=== PATIENT | female | born 1975 | race Caucasian/White ===

== ENCOUNTER 2018-09-15 13:39 | Inpatient (IN) | payer OTHER ==
[~2018-09-15] VITALS: Ht 157.5 cm; Wt 86.4 kg
--- NOTE | 2018-09-15 14:15 | ERD ---
ER Documentation Chief Complaint Chief Complaint pt was being transported back to [facility] en route HPI The patient is a 43-year-old female presenting to the ER because of new onset seizure. She was brought from assisted living home to [facility] for acute suicidal ideation. She was seen in the ER and cleared for psychiatric admission. She was seen by rubber [facility]older who sent her to [facility] and [facility]. However she had a seizure in route to the hospital, therefore she was diverted to the emergency department. According to the EMS, she is a lasted for approximately 30 seconds, she was foaming at the mouth. I reviewed the notes from [facility], she was talking Past Medical/surgical service/social history/review of system: Unable to obtain due to her condition Medications Home Meds Reported Medications Bupropion Hcl* (Bupropion Hcl*) Unknown Strength Tablet, TAB PO, TAB 09/15/18 Aripiprazole* (Abilify*) Unknown Strength Tablet, TAB PO, #30 TAB 09/15/18 Alprazolam* (Xanax*) Unknown Strength Tab, TAB PO, TAB 09/15/18 Allergies Allergies: Coded Allergies: No Known Allergy (Unverified , 09/15/18) Physical Exam Vitals Vital Signs Date Temp Pulse Resp B/P (MAP) Pulse Ox O2 O2 Flow FiO2 Time Delivery Rate 09/15/18 83 18 98/71 (80) 92 Room Air 18:30 09/15/18 85 17 107/71 96 Room Air 17:15 (83) 09/15/18 98.2 82 20 117/78 97 16:12 (91) 09/15/18 98.2 98 20 110/61 97 13:46 (77) Physical Exam Const: No acute distress. Head: Atraumatic. Eyes: Normal Conjunctiva. ENT: Normal External Ears, Nose and Mouth. Some oral discharge Neck: Full range of motion. No meningismus. Resp: Clear to auscultation bilaterally. Cardio: Regular rate and rhythm. Abd: Soft, non distended, normal bowel sounds, non tender. Skin: No petechiae or rashes. Back: No midline or flank tenderness. Ext: No cyanosis, or edema. Neur: Unable to perform due to her condition Psych: Unable to perform due to her condition Result Diagram: 09/15/18 1441 09/15/18 1441 Results 24 hrs Laboratory Tests Test 09/15/18 14:41 White Blood Count 7.6 10^3/ul Red Blood Count 4.67 10^6/ul Hemoglobin 14.0 g/dl Hematocrit 42.0 % Mean Corpuscular Volume 89.9 fl Mean Corpuscular Hemoglobin 30.0 pg Mean Corpuscular Hemoglobin Concent 33.3 g/dl Red Cell Distribution Width 13.2 % Platelet Count 310 10^3/UL Mean Platelet Volume 10.6 fl Immature Granulocytes % 0.300 % Neutrophils % 52.8 % Lymphocytes % 34.2 % Monocytes % 10.3 % Eosinophils % 1.5 % Basophils % 0.9 % Nucleated Red Blood Cells % 0.0 /100WBC Immature Granulocytes # 0.020 10^3/ul Neutrophils # 4.0 10^3/ul Lymphocytes # 2.6 10^3/ul Monocytes # 0.8 10^3/ul Eosinophils # 0.1 10^3/ul Basophils # 0.1 10^3/ul Nucleated Red Blood Cells # 0.0 10^3/ul Sodium Level 142 mmol/L Potassium Level 3.7 mmol/L Chloride Level 109 mmol/L Carbon Dioxide Level 27 mmol/L Anion Gap 6 Blood Urea Nitrogen 4 mg/dl Creatinine 0.62 mg/dl Est Glomerular Filtrat Rate mL/min > 60 mL/min Glucose Level 105 mg/dl Calcium Level 9.8 mg/dl Current Medications Medications Dose Sig/Viridiana Start Time Status Last (Trade) Ordered Route PRN Stop Time Admin Dose Reason Admin 100 ml @ ONCE STAT 09/15/18 DC 09/15/18 Levetiracetam 400 mls/hr IVPB 14:20 14:45 09/15/18 14:34 Lorazepam 2 mg STK-MED 09/15/18 DC (Ativan) ONCE .ROUTE 16:41 09/15/18 16:42 Lorazepam 0.5 mg ONCE ONCE 09/15/18 DC 09/15/18 (Ativan) IV 17:00 16:52 09/15/18 17:01 Procedures/[place] [id number] Radiology Main Line: [phone] DIAGNOSTIC IMAGING REPORT Patient: PILI LORA : 1975 Age: 43 Sex: F MR #: [id number] DOS: 09/15/18 1420 Ordering MD: ORLY TEMPLE MD Location: E/R Room/Bed: PROCEDURE: CT Brain without contrast. CLINICAL INDICATION: Seizure TECHNIQUE: A CT of the brain was performed on a multidetector CT scanner utilizing axial sections from the skull base through the vertex without contrast. Images were reviewed on a high-resolution PACS workstation. Exam CTDI = 39.04 mGy and the DLP = 634.23 mGy-cm. DICOM images are available. One or more of the following dose reduction techniques were used: Automated exposure control. Adjustment of the mA and/or kV according to patient size. Use of iterative reconstruction technique. COMPARISON: None available FINDINGS: There is no evidence of intracranial hemorrhage, mass effect or midline shift. No abnormal intra-axial or extra-axial fluid collections are seen. The density of the brain is normal and the [place]/white matter differentiation is well preserved. There are several calcified scalp lesions in the left frontal parietal region. The osseous structures are intact. The paranasal sinuses are clear. IMPRESSION: 1. No intracranial hemorrhage, mass effect or midline shift. RPTAT: BB .Poonam Flood MD, MD Date Time Electronically viewed and signed by .Poonam Flood MD, MD on 09/15/2018 15:20 .O/ CC: ORLY TEMPLE MD [id number] [place] [address] Radiology Main Line: [phone] DIAGNOSTIC IMAGING REPORT Patient: PILI LORA : 1975 Age: 43 Sex: F MR #: [id number] DOS: 09/15/18 1420 Ordering MD: ORLY TEMPLE MD Location: E/R Room/Bed: PROCEDURE: XR Chest. CLINICAL INDICATION: Seizure TECHNIQUE: Single frontal view of the chest was obtained COMPARISON: None FINDINGS: The heart and mediastinum are within normal limits. The lungs are clear. There is no pleural effusion or pneumothorax. RPTAT: AA IMPRESSION: No acute disease. .Vj Estrada MD, Date Time Electronically viewed and signed by .Vj Estrada MD, on 09/15/2018 15:00 .S/ CC: ORLY TEMPLE MD [id number] MEDICAL MAKING DECISION: The patient remain noncommunicating the emergency department, questionable pseudoseizure. We have tried to awake her with ammonia, however she became agitated. She was treated empirically with Keppra 1 g IV for acute new onset seizure The differential diagnoses considered include but are not limited to new onset seizure, decompensated psychiatric illness, electrolyte imbalance, viral meningitis, anxiety attack, panic attack Departure Diagnosis: Primary Impression: New onset seizure Condition: Stable Comments I discussed the findings with the patient. I discussed the patient with Dr Sanders at 4:20p , who was made aware of the lab, the treatment, the patient condition. The patient is admitted to [facility] Disclaimer: Inadvertent spelling and grammatical errors are likely due to EHR/dictation software use and do not reflect on the overall quality of patient care. Also, please note that the electronic time recorded on this note does not necessarily reflect the actual time of the patient encounter. ORLY TEMPLE MD September 15, 2018 14:15
[2018-09-15] MEDS ORDERED: LEVETIRACETAM 1000 MG (PMX) 100 ML IVPB STA (14:20)
[2018-09-15] MEDS ORDERED: ALPR0.5T PO (14:29)
[2018-09-15] MEDS ORDERED: ARIP2TAB17 PO (14:30)
[2018-09-15] MEDS ORDERED: BUPR100T14 PO (14:31)
[2018-09-15] MEDS ORDERED: LORAZEPAM 2 MG INJ ONE (16:41)
[2018-09-15] MEDS ORDERED: LORAZEPAM 2 MG INJ IV ONE (17:00)
--- NOTE | 2018-09-15 17:15 | HP ---
Date/Time of Note Date/Time of Note DATE: 09/15/18 TIME: 17:10 Assessment/Plan VTE Prophylaxis Pharmacological prophylaxis: heparin Lines/Catheters [facility] Saline Lock Assessment/Plan Hospital Course 43 yo female with depression presents with seizure vs pseudoseizure - Not clear if this was actual seizure activity vs pseudoseiurze. we will get an EEG and consult neurology - She has been given Keppra, will defer further AEDs to neurology - Monitor, supportive care Result Diagram: 09/15/18 1441 09/15/18 1441 Results 24hrs Laboratory Tests Test 09/15/18 14:41 White Blood Count 7.6 Red Blood Count 4.67 Hemoglobin 14.0 Hematocrit 42.0 Mean Corpuscular Volume 89.9 Mean Corpuscular Hemoglobin 30.0 Mean Corpuscular Hemoglobin Concent 33.3 Red Cell Distribution Width 13.2 Platelet Count 310 Mean Platelet Volume 10.6 H Immature Granulocytes % 0.300 Neutrophils % 52.8 Lymphocytes % 34.2 Monocytes % 10.3 Eosinophils % 1.5 Basophils % 0.9 Nucleated Red Blood Cells % 0.0 Immature Granulocytes # 0.020 Neutrophils # 4.0 Lymphocytes # 2.6 Monocytes # 0.8 Eosinophils # 0.1 Basophils # 0.1 Nucleated Red Blood Cells # 0.0 Sodium Level 142 Potassium Level 3.7 Chloride Level 109 Carbon Dioxide Level 27 Anion Gap 6 Blood Urea Nitrogen 4 L Creatinine 0.62 Est Glomerular Filtrat Rate mL/min > 60 Glucose Level 105 Calcium Level 9.8 HPI/ROS Admit Date/Time Admit Date/Time Hx of Present Illness 43 yo female with depression presents for evaluation of seizure Patient hosptialized for depression. She was being transported in ambulance when had a witness seizure and brought to ED Here she is nonresponsive to verbal stimuli Making odd ocular movements. Then given smelling salts and seemed to have generalized tonic clonic seizure though unclear perhaps malingering. Vitals totally normal. Non responding to verbal cues ROS Constitutional: no complaints, improved Eyes: no complaints ENT: no complaints Respiratory: no complaints Cardiovascular: no complaints Gastrointestinal: no complaints Genitourinary: no complaints Musculoskeletal: no complaints Skin: no complaints Neurologic: no complaints Endocrine: no complaints Lymphatic: no complaints Psychological: no complaints, nl mood/affect Immunologic: no complaints PMH/Family/Social Past Medical History Medical History: no pertinent history Coded Allergies: No Known Allergy (Unverified , 09/15/18) Past Surgical History Past Surgical Hx: no surgical history Family History Significant Family History: no pertinent family hx Social History Alcohol Use: none Smoking Status: Unknown if ever smoked Drug Use: none Exam/Review of Systems Vital Signs Vitals Vital Signs Date Temp Pulse Resp B/P (MAP) Pulse Ox O2 O2 Flow FiO2 Time Delivery Rate 09/15/18 98.2 82 20 117/78 97 16:12 (91) Exam Exam Nonresponsive to verbal or noxious stimuli When arm drops she doesn't allow it to hit her face RRR Breathing comfortably Noncooperative with neuro exam Reflexes 2+ throughout MARK CORTEZ MD September 15, 2018 17:15
[2018-09-15] MEDS ORDERED: DOCUSATE SODIUM 100 MG CAP PO PRN (22:00)
[2018-09-15] MEDS ORDERED: ACETAMINOPHEN 325 MG TAB PO PRN (22:00)
[2018-09-15] MEDS ORDERED: LORAZEPAM 2 MG INJ IV PRN (22:00)
[2018-09-15] MEDS ORDERED: BISACODYL (EC) 5 MG TAB PO PRN (22:00)
[2018-09-15] MEDS ORDERED: NACL 0.9% 3 ML SYG IV SCH (22:00)
[2018-09-15 23:28] VITALS: PULSE 85
[2018-09-15 23:30] VITALS: Ht 157.5 cm; Wt 86.4 kg
[2018-09-16] VITALS (11 sets, daily range): BP systolic 101–117; BP diastolic 53–76; PULSE 78–109; RESP 18–20
[2018-09-16] MEDS: NITROFURANTOIN (SR) 100 MG CAP PO SCH
[2018-09-16] MEDS ORDERED: LORAZEPAM 2 MG INJ IV ONE (06:00)
--- NOTE | 2018-09-16 06:19 | EN ---
Date/Time of Note Date/Time of Note DATE: 09/16/18 TIME: 06:14 Event Note Medicine Medicine Event Note Rapid response note rapid response called at approximately 5:50 AM Patient was noted to be nonresponsive, she was displaying possible seizure-like behavior with twitching of her eyes. Patient was nonresponsive to verbal command. She was not responsive to vigorous sternal rub. Upon attempt to open her eyelids she did appear to be possibly resisting. Her eyes were rolling back, and her eyelids were twitching. The rest of her body was not displaying any jerking movements. Patient was given 2 mg of Ativan after observing her possible seizure-like activity for a few minutes. There was no response with the initial Ativan. She was given another Ativan 2 mg IV a few minutes after which did result in cessation of the patient's seizure-like activity. No urinary incontinence. No tongue biting noted. Vital signs stable General: Patient nonresponsive to vigorous sternal rub, no response to verbal command. After receiving a total of 4 mg of IV Ativan her seizure-like activity did cease. CVS: Normal sinus rhythm at approximately 90 bpm Lungs: Clear to oscillation bilaterally Neuro: Nonresponsive, not showing seizure-like behavior. Her twitching and seizure-like behavior disease after receiving a total of 4 mg of Ativan. Assessment and plan: #1 witnessed seizure: Twitching and seizure-like activity did resolve after total of 4 mg of IV Ativan. Her oxygenation and vitals remained stable. She currently remains in postictal state. She is maintaining her airway. We will continue to monitor closely on telemetry. EEG is already been ordered. Will order stat prolactin level. Initiated on Keppra 1000 mg twice daily. Neurology has already been consulted as per the day shift. Consider MRI of the brain. Greater than 30 minutes critical care time was spent on the care management this patient. KEE GAUTHIER September 16, 2018 06:19
[2018-09-16] MEDS ORDERED: LEVETIRACETAM 1000 MG (PMX) 100 ML IVPB SCH (07:30)
--- NOTE | 2018-09-16 12:44 | PN ---
Date/Time of Note Date/Time of Note DATE: 09/16/18 TIME: 12:32 Assessment/Plan VTE Prophylaxis Risk score (from Ns)>0 risk: 3 SCD applied (from Ns): Yes Pharmacological prophylaxis: heparin Lines/Catheters IV [facility] Saline Lock Urinary Cath still in place: No Assessment/Plan Assessment/Plan 1. Alerted mental status, patient got 4 grams of ativan iv this morning and she had seizure-like activities, psychogenic. Follow up with neurology 2. Suicidal ideation, sitter 3. DVT prophylaxis: heparin Result Diagram: 09/16/1834 09/16/1834 Results 24hrs Laboratory Tests Test 09/15/18 14:41 09/16/18 05:34 09/16/18 05:44 09/16/18 06:10 White Blood Count 7.6 7.5 Red Blood Count 4.67 4.50 Hemoglobin 14.0 13.5 Hematocrit 42.0 40.8 Mean Corpuscular 89.9 90.7 Volume Mean Corpuscular 30.0 30.0 Hemoglobin Mean Corpuscular 33.3 33.1 Hemoglobin Concen t Red Cell 13.2 13.2 Distribution Width Platelet Count 310 276 Mean Platelet 10.6 H 10.8 H Volume Immature 0.300 0.300 Granulocytes % Neutrophils % 52.8 61.8 Lymphocytes % 34.2 28.1 Monocytes % 10.3 7.2 Eosinophils % 1.5 1.9 Basophils % 0.9 0.7 Nucleated Red 0.0 0.0 Blood Cells % Immature 0.020 0.020 Granulocytes # Neutrophils # 4.0 4.6 Lymphocytes # 2.6 2.1 Monocytes # 0.8 0.5 Eosinophils # 0.1 0.1 Basophils # 0.1 0.1 Nucleated Red 0.0 0.0 Blood Cells # Sodium Level 142 142 Potassium Level 3.7 3.6 Chloride Level 109 109 Carbon Dioxide 27 26 Level Anion Gap 6 7 Blood Urea 4 L 7 Nitrogen Creatinine 0.62 0.62 Est Glomerular > 60 > 60 Filtrat Rate mL/min Glucose Level 105 91 Calcium Level 9.8 9.8 Hemoglobin A1c 4.9 Magnesium Level 2.3 Total Bilirubin 0.3 Direct Bilirubin 0.00 Indirect 0.3 Bilirubin Aspartate Amino 18 Transf (AST/SGOT) Alanine 17 Aminotransferase (ALT/SGPT) Alkaline 89 Phosphatase Total Protein 6.6 Albumin 3.8 Globulin 2.80 Albumin/Globulin 1.35 Ratio Triglycerides 194 H Level Cholesterol Level 192 LDL Cholesterol, 120 Calculated HDL Cholesterol 33 L Cholesterol/HDL 5.8 Ratio Thyroid 1.250 Stimulating Hormone (TSH) Bedside Glucose 88 Urine Color NAZ Urine Clarity SLIGHTLY CLOUDY A Urine pH 5.0 Urine Specific 1.024 [place] Urine Ketones 1+ H Urine Nitrite NEGATIVE Urine Bilirubin NEGATIVE Urine 1+ H Urobilinogen Urine Leukocyte 2+ H Esterase Urine Microscopic 1 RBC Urine Microscopic 37 H WBC Urine Squamous FEW Epithelial Cells Urine Bacteria MANY A Urine Mucus MANY A Urine Hemoglobin NEGATIVE Urine Glucose NEGATIVE Urine Total NEGATIVE Protein Subjective 24 Hr Interval Summary Free Text/Dictation patient closes her eyes, no respiratory distress. She moves her eyes but does no open her eyes when asked to. Not follow commends. normal skin color Exam/Review of Systems Exam Vitals Vital Signs Date Temp Pulse Resp B/P (MAP) Pulse Ox O2 O2 Flow FiO2 Time Delivery Rate 09/16/18 97.3 95 20 113/64 95 Room Air 11:31 (80) Constitutional: well developed, non-verbal Head: normocephalic, atraumatic Eyes: nl conjunctiva, EOMI, nl lids, PERRL ENMT: nl external ears & nose, nl lips & teeth, nl nasal mucosa & septum Neck: supple, non-tender Respiratory: clear to auscultation, normal air movement; No congested cough, No crackles/rales, No diminished breath sounds, No intercostal retraction, No labored breathing, No respirations, No tactile fremitus, No wheezing, No other Cardiovascular: regular rate and rhythm, nl pulses Gastrointestinal: soft, nl liver, spleen Musculoskeletal: nl extremities to inspection Extremities: normal pulses; No calf tenderness, No cyanosis, No clubbing, No edema, No pitting pedal edema, No palpable cord, No tenderness, No other Neurological: unresponsive Results Results 24hrs Laboratory Tests Test 09/15/18 14:41 09/16/18 05:34 09/16/18 05:44 09/16/18 06:10 White Blood Count 7.6 7.5 Red Blood Count 4.67 4.50 Hemoglobin 14.0 13.5 Hematocrit 42.0 40.8 Mean Corpuscular 89.9 90.7 Volume Mean Corpuscular 30.0 30.0 Hemoglobin Mean Corpuscular 33.3 33.1 Hemoglobin Concen t Red Cell 13.2 13.2 Distribution Width Platelet Count 310 276 Mean Platelet 10.6 H 10.8 H Volume Immature 0.300 0.300 Granulocytes % Neutrophils % 52.8 61.8 Lymphocytes % 34.2 28.1 Monocytes % 10.3 7.2 Eosinophils % 1.5 1.9 Basophils % 0.9 0.7 Nucleated Red 0.0 0.0 Blood Cells % Immature 0.020 0.020 Granulocytes # Neutrophils # 4.0 4.6 Lymphocytes # 2.6 2.1 Monocytes # 0.8 0.5 Eosinophils # 0.1 0.1 Basophils # 0.1 0.1 Nucleated Red 0.0 0.0 Blood Cells # Sodium Level 142 142 Potassium Level 3.7 3.6 Chloride Level 109 109 Carbon Dioxide 27 26 Level Anion Gap 6 7 Blood Urea 4 L 7 Nitrogen Creatinine 0.62 0.62 Est Glomerular > 60 > 60 Filtrat Rate mL/min Glucose Level 105 91 Calcium Level 9.8 9.8 Hemoglobin A1c 4.9 Magnesium Level 2.3 Total Bilirubin 0.3 Direct Bilirubin 0.00 Indirect 0.3 Bilirubin Aspartate Amino 18 Transf (AST/SGOT) Alanine 17 Aminotransferase (ALT/SGPT) Alkaline 89 Phosphatase Total Protein 6.6 Albumin 3.8 Globulin 2.80 Albumin/Globulin 1.35 Ratio Triglycerides 194 H Level Cholesterol Level 192 LDL Cholesterol, 120 Calculated HDL Cholesterol 33 L Cholesterol/HDL 5.8 Ratio Thyroid 1.250 Stimulating Hormone (TSH) Bedside Glucose 88 Urine Color NAZ Urine Clarity SLIGHTLY CLOUDY A Urine pH 5.0 Urine Specific 1.024 [place] Urine Ketones 1+ H Urine Nitrite NEGATIVE Urine Bilirubin NEGATIVE Urine 1+ H Urobilinogen Urine Leukocyte 2+ H Esterase Urine Microscopic 1 RBC Urine Microscopic 37 H WBC Urine Squamous FEW Epithelial Cells Urine Bacteria MANY A Urine Mucus MANY A Urine Hemoglobin NEGATIVE Urine Glucose NEGATIVE Urine Total NEGATIVE Protein Medications Medication Current Medications IV Flush (NS 3 ml) 3 ml PER PROTOCOL IV ; Start 09/15/18 at 22:00 Lorazepam (Ativan) 1 mg Q2H PRN IV SEIZURES Last administered on 09/16/18at 05:53; Admin Dose 1 MG; Start 09/15/18 at 22:00 Ondansetron HCl (Zofran Inj) 4 mg Q6H PRN IV NAUSEA/VOMITING; Start 09/15/18 at 22:00 Acetaminophen (Tylenol Tab) 650 mg Q6H PRN PO .PAIN 1-3 OR TEMP; Start 09/15/18 at 22:00 Docusate Sodium (Colace) 100 mg Q12H PRN PO .CONSTIPATION; Start 09/15/18 at 22:00 Bisacodyl (Dulcolax) 5 mg DAILY PRN PO .CONSTIPATION; Start 09/15/18 at 22:00 Levetiracetam 100 ml @ 400 mls/hr Q12 IVPB Last administered on 09/16/18at 08:51; Admin Dose 400 MLS/HR; Start 09/16/18 at 07:30 SOPHIA MALDONADO MD September 16, 2018 12:42
--- NOTE | 2018-09-16 13:36 | CONS ---
Assessment/Plan Assessment/Plan Hospital Course 43 yo F with presumed psychiatric history who presents for evaluation following a spell concerning for seizure.. Her neurologic history is presently uncertain. On 09/16, she was additionally noted to have a recurrent spell concerning for seizure, for which a rapid response was called...which raises concern for epilepsy. Nonconvulsive seizures are additionally considered. Her neurologic examination is presently concerning for catatonia. CTH is unrevealing. P: MRI brain without contrast for further characterization EEG to evaluate for epileptiform activity Hold Keppra for now Load with depakote 1g and start maintenance 500mg BID; titrate PRN to goal level 50-100. Ativan IV PRN prolonged seizure or for cluster Cont other medical management per primary Consider psych eval Will follow clinically Consultation Date/Type/Reason Admit Date/Time Type of Consult Neurology Reason for Consultation eval for seizures Requesting Provider: MARK CORTEZ MD Date/Time of Note DATE: 09/16/18 TIME: 13:36 Hx of Present Illness The pt is currently unable to contribute a hx. It is additionally elsewhere noted: HPI The patient is a 43-year-old female presenting to the ER because of new onset seizure. She was brought from assisted living home to [facility] for acute suicidal ideation. She was seen in the ER and cleared for psychiatric admission. She was seen by production support consultant who sent her to [facility] and [place]. However she had a seizure in route to the hospital, therefore she was diverted to the emergency department. According to the EMS, she is a lasted for approximately 30 seconds, she was foaming at the mouth. I reviewed the notes from [facility], she was talking Following arrival to the ED, the pt was reportedly unresponsive to any stimuli. She was noted to have made "odd ocular movements, given smelling salts which seemed to have triggered a generalized tonic clonic seizure... concerning for seizure vs malingering. Her vitals reportedly were stable at the time; she remained nonresponsive afterwards. Subjective hx not possible: pt non-verbal Exam/Review of Systems Exam Vitals Vital Signs Date Temp Pulse Resp B/P (MAP) Pulse Ox O2 O2 Flow FiO2 Time Delivery Rate 09/16/18 104 13:02 09/16/18 97.3 20 113/64 95 Room Air 11:31 (80) Exam PE: Gen Appearance: No Apparent Distress HEENT: Normocephalic Cardiovascular: Regular rate Abdomen: Soft Extremities: Dry NE: The patient was obtunded and nonverbal. Cranial nerve examination was limited by mental status. Eyes were difficult to open. Pupils were equal and reactive to light. There was no afferent pupillary defect. Funduscopic examination was limited. Face was grossly symmetric, w/ present corneal and cough reflexes. Tone was normal. Muscle bulk was normal. I did not see fasciculations. The patient did not withdraw to noxious stimulation. Coordination and gait testing was limited by mental status. Arm and leg reflexes were within normal limits and symmetric. Nugent's sign was absent. Plantar responses were flexor. Results Result Diagram: 09/16/18 0534 09/16/1834 Results 24hrs Laboratory Tests Test 09/15/18 14:41 09/16/18 05:34 09/16/18 05:44 09/16/18 06:10 White Blood Count 7.6 7.5 Red Blood Count 4.67 4.50 Hemoglobin 14.0 13.5 Hematocrit 42.0 40.8 Mean Corpuscular 89.9 90.7 Volume Mean Corpuscular 30.0 30.0 Hemoglobin Mean Corpuscular 33.3 33.1 Hemoglobin Concen t Red Cell 13.2 13.2 Distribution Width Platelet Count 310 276 Mean Platelet 10.6 H 10.8 H Volume Immature 0.300 0.300 Granulocytes % Neutrophils % 52.8 61.8 Lymphocytes % 34.2 28.1 Monocytes % 10.3 7.2 Eosinophils % 1.5 1.9 Basophils % 0.9 0.7 Nucleated Red 0.0 0.0 Blood Cells % Immature 0.020 0.020 Granulocytes # Neutrophils # 4.0 4.6 Lymphocytes # 2.6 2.1 Monocytes # 0.8 0.5 Eosinophils # 0.1 0.1 Basophils # 0.1 0.1 Nucleated Red 0.0 0.0 Blood Cells # Sodium Level 142 142 Potassium Level 3.7 3.6 Chloride Level 109 109 Carbon Dioxide 27 26 Level Anion Gap 6 7 Blood Urea 4 L 7 Nitrogen Creatinine 0.62 0.62 Est Glomerular > 60 > 60 Filtrat Rate mL/min Glucose Level 105 91 Calcium Level 9.8 9.8 Hemoglobin A1c 4.9 Magnesium Level 2.3 Total Bilirubin 0.3 Direct Bilirubin 0.00 Indirect 0.3 Bilirubin Aspartate Amino 18 Transf (AST/SGOT) Alanine 17 Aminotransferase (ALT/SGPT) Alkaline 89 Phosphatase Total Protein 6.6 Albumin 3.8 Globulin 2.80 Albumin/Globulin 1.35 Ratio Triglycerides 194 H Level Cholesterol Level 192 LDL Cholesterol, 120 Calculated HDL Cholesterol 33 L Cholesterol/HDL 5.8 Ratio Thyroid 1.250 Stimulating Hormone (TSH) Bedside Glucose 88 Urine Color NAZ Urine Clarity SLIGHTLY CLOUDY A Urine pH 5.0 Urine Specific 1.024 [place] Urine Ketones 1+ H Urine Nitrite NEGATIVE Urine Bilirubin NEGATIVE Urine 1+ H Urobilinogen Urine Leukocyte 2+ H Esterase Urine Microscopic 1 RBC Urine Microscopic 37 H WBC Urine Squamous FEW Epithelial Cells Urine Bacteria MANY A Urine Mucus MANY A Urine Hemoglobin NEGATIVE Urine Glucose NEGATIVE Urine Total NEGATIVE Protein Medications Medication Current Medications IV Flush (NS 3 ml) 3 ml PER PROTOCOL IV ; Start 09/15/18 at 22:00 Lorazepam (Ativan) 1 mg Q2H PRN IV SEIZURES Last administered on 09/16/18at 05:53; Admin Dose 1 MG; Start 09/15/18 at 22:00 Ondansetron HCl (Zofran Inj) 4 mg Q6H PRN IV NAUSEA/VOMITING; Start 09/15/18 at 22:00 Acetaminophen (Tylenol Tab) 650 mg Q6H PRN PO .PAIN 1-3 OR TEMP; Start 09/15/18 at 22:00 Docusate Sodium (Colace) 100 mg Q12H PRN PO .CONSTIPATION; Start 09/15/18 at 22:00 Bisacodyl (Dulcolax) 5 mg DAILY PRN PO .CONSTIPATION; Start 09/15/18 at 22:00 Levetiracetam 100 ml @ 400 mls/hr Q12 IVPB Last administered on 09/16/18at 08:51; Admin Dose 400 MLS/HR; Start 09/16/18 at 07:30 Heparin Sodium (Porcine) (Heparin (5000 Units/1ml)) 5,000 unit BID SC ; Start 09/16/18 at 21:00 Past Medical History reviewed Medical History: no pertinent history Home Meds Reported Medications Bupropion Hcl* (Bupropion Hcl*) Unknown Strength Tablet, TAB PO, TAB 09/15/18 Aripiprazole* (Abilify*) Unknown Strength Tablet, TAB PO, #30 TAB 09/15/18 Alprazolam* (Xanax*) Unknown Strength Tab, TAB PO, TAB 09/15/18 Medications Current Medications IV Flush (NS 3 ml) 3 ml PER PROTOCOL IV ; Start 09/15/18 at 22:00 Lorazepam (Ativan) 1 mg Q2H PRN IV SEIZURES Last administered on 09/16/18at 0 5:53; Admin Dose 1 MG; Start 09/15/18 at 22:00 Ondansetron HCl (Zofran Inj) 4 mg Q6H PRN IV NAUSEA/VOMITING; Start 09/15/18 at 22:00 Acetaminophen (Tylenol Tab) 650 mg Q6H PRN PO .PAIN 1-3 OR TEMP; Start 09/15/18 at 22:00 Docusate Sodium (Colace) 100 mg Q12H PRN PO .CONSTIPATION; Start 09/15/18 at 22:00 Bisacodyl (Dulcolax) 5 mg DAILY PRN PO .CONSTIPATION; Start 09/15/18 at 22:00 Levetiracetam 100 ml @ 400 mls/hr Q12 IVPB Last administered on 09/16/18at 08:51; Admin Dose 400 MLS/HR; Start 09/16/18 at 07:30 Heparin Sodium (Porcine) (Heparin (5000 Units/1ml)) 5,000 unit BID SC ; Start 09/16/18 at 21:00 Allergies: Coded Allergies: No Known Allergy (Unverified , 09/15/18) Past Surgical History reviewed Past Surgical Hx: no surgical history Social History reviewed Alcohol Use: none Smoking Status: Unknown if ever smoked Drug Use: none KEVIN ROBERTS NP September 16, 2018 13:36 VINCE KEYS September 17, 2018 07:12
[2018-09-16] MEDS: BENZTROPINE 1 MG TAB PO SCH (17:00)
[2018-09-16] MEDS: HALOPERIDOL 5 MG TAB PO SCH (17:00)
--- NOTE | 2018-09-16 17:12 | PSY ---
Date/Time of Note Date/Time of Note DATE: 09/16/18 TIME: 17:03 Psychiatric Subjective Eval Consent Pt consented to telemedicine: No Subjective Evaluation Patient location: inpatient Chief Complaint: pt was being transported back to [facility] en route History of present illness Patient is a 43-year-old female with medical history of seizure. [id number] evaluation, patient is selectively mute, responding to questions in a monosyllables, she however states that she has suicidal thoughts with no specific plan patient has poor impulse control very unpredictable old scars noted on patient's wrists bilateral from previous self-mutilation. She denies auditory hallucination, but continues to reports suicidal thoughts unable to contract for safety. Discussed risk and benefits of medications of Haldol and Cogentin, which patient states is her routine meds and she verbalized understanding. Past psychiatric history Long history of mental illness Hospitalization: other Medical history Problems Medical Problems: (1) New onset seizure Status: Acute Allergies: Coded Allergies: No Known Allergy (Unverified , 09/15/18) Substance Abuse Substance abuse history: No Prior substance abuse treatmen: No Social History Marital status: single DPA/Conservatorship: No Psychiatric Objective Eval Review of Systems: Review of Systems: Not Applicable Physical Examination: Physical Examination: Applicable Appetite: Adequate Energy: Adequate Interest: Adequate Mental Status Examination: Appearance: Groomed, Disheveled Eye Contact: Poor Psychomotor Activity: Slow Behavior: Suspicious Speech: Clear, Soft AFFECT: Appropriate Mood: Depressed Though Process: Linear Orientation: x4 Cognition: Alert Insight: Impared Judgement: Moderate Attention Span: Distractible Laboratory Results Laboratory Tests Test 09/15/18 14:41 09/16/18 05:34 09/16/18 05:44 09/16/18 06:10 White Blood 7.6 10^3/ul 7.5 10^3/ul Count Red Blood Count 4.67 10^6/ul 4.50 10^6/ul Hemoglobin 14.0 g/dl 13.5 g/dl Hematocrit 42.0 % 40.8 % Mean Corpuscular 89.9 fl 90.7 fl Volume Mean Corpuscular 30.0 pg 30.0 pg Hemoglobin Mean Corpuscular 33.3 g/dl 33.1 g/dl Hemoglobin Nina nt Red Cell 13.2 % 13.2 % Distribution Width Platelet Count 310 10^3/UL 276 10^3/UL Mean Platelet 10.6 fl 10.8 fl Volume Immature 0.300 % 0.300 % Granulocytes % Neutrophils % 52.8 % 61.8 % Lymphocytes % 34.2 % 28.1 % Monocytes % 10.3 % 7.2 % Eosinophils % 1.5 % 1.9 % Basophils % 0.9 % 0.7 % Nucleated Red 0.0 /100WBC 0.0 /100WBC Blood Cells % Immature 0.020 10^3/ul 0.020 10^3/ul Granulocytes # Neutrophils # 4.0 10^3/ul 4.6 10^3/ul Lymphocytes # 2.6 10^3/ul 2.1 10^3/ul Monocytes # 0.8 10^3/ul 0.5 10^3/ul Eosinophils # 0.1 10^3/ul 0.1 10^3/ul Basophils # 0.1 10^3/ul 0.1 10^3/ul Nucleated Red 0.0 10^3/ul 0.0 10^3/ul Blood Cells # Sodium Level 142 mmol/L 142 mmol/L Potassium Level 3.7 mmol/L 3.6 mmol/L Chloride Level 109 mmol/L 109 mmol/L Carbon Dioxide 27 mmol/L 26 mmol/L Level Anion Gap 6 7 Blood Urea 4 mg/dl 7 mg/dl Nitrogen Creatinine 0.62 mg/dl 0.62 mg/dl Est Glomerular > 60 mL/min > 60 mL/min Filtrat Rate mL/min Glucose Level 105 mg/dl 91 mg/dl Calcium Level 9.8 mg/dl 9.8 mg/dl Hemoglobin A1c 4.9 % Magnesium Level 2.3 mg/dl Total Bilirubin 0.3 mg/dl Direct Bilirubin 0.00 mg/dl Indirect 0.3 mg/dl Bilirubin Aspartate Amino 18 IU/L Transf (AST/SGOT ) Alanine 17 IU/L Aminotransferase (ALT/SGPT) Alkaline 89 IU/L Phosphatase Total Protein 6.6 g/dl Albumin 3.8 g/dl Globulin 2.80 g/dl Albumin/Globulin 1.35 Ratio Triglycerides 194 mg/dl Level Cholesterol 192 mg/dl Level LDL Cholesterol, 120 mg/dl Calculated HDL Cholesterol 33 mg/dl Cholesterol/HDL 5.8 RATIO Ratio Thyroid 1.250 MIU/L Stimulating Hormone (TSH) Bedside Glucose 88 mg/dL Urine Color NAZ Urine Clarity SLIGHTLY CLOUDY Urine pH 5.0 Urine Specific 1.024 [place] Urine Ketones 1+ mg/dL Urine Nitrite NEGATIVE mg/dL Urine Bilirubin NEGATIVE mg/dL Urine 1+ mg/dL Urobilinogen Urine Leukocyte 2+ Claudio/ul Esterase Urine 1 /HPF Microscopic RBC Urine 37 /HPF Microscopic WBC Urine Squamous FEW /HPF Epithelial Cells Urine Bacteria MANY /HPF Urine Mucus MANY /HPF Urine Hemoglobin NEGATIVE mg/dL Urine Glucose NEGATIVE mg/dL Urine Total NEGATIVE mg/dl Protein Assessment and Plan Assessment/Diagnosis Diagnosis Schizoaffective disorder severe Recommendation/Plan Medication Management Haldol 5 mg daily, Cogentin 1 mg daily Multiple antipsychotics: No Discharge Disposition: Other Legal Status: Voluntary (Evaluation for 5150 hold continue one-to-one supervision, ) ALLISON LARIOS NP September 16, 2018 17:12
[2018-09-16] MEDS ORDERED: VALPROATE INJ 1,000 MG in SOD CHLORIDE 0.9% 100 ML IVPB ONE (17:30)
[2018-09-16] MEDS: HEPARIN 5,000 UNIT/1 ML VIAL SC SCH ×2 (20:59→22:40)
[2018-09-16] MEDS: VALPROATE INJ 500 MG in SOD CHLORIDE 0.9% 50 ML IVPB SCH (22:38)
[2018-09-17] VITALS (11 sets, daily range): BP systolic 110–120; BP diastolic 61–70; PULSE 80–96; RESP 18–19
[2018-09-17] MEDS: VALPROATE INJ 500 MG in SOD CHLORIDE 0.9% 50 ML IVPB SCH ×2 (08:24→21:58)
[2018-09-17] MEDS: HEPARIN 5,000 UNIT/1 ML VIAL SC SCH ×2 (08:30→22:00)
[2018-09-17] MEDS: BENZTROPINE 1 MG TAB PO SCH (08:30)
[2018-09-17] MEDS: HALOPERIDOL 5 MG TAB PO SCH (08:30)
[2018-09-17] MEDS: NITROFURANTOIN (SR) 100 MG CAP PO SCH ×2 (08:31→21:58)
--- NOTE | 2018-09-17 11:57 | PN ---
Date/Time of Note Date/Time of Note DATE: 09/17/18 TIME: 11:54 Subjective Chart was reviewed. She opens her eyes but refuses to talk to me. Objective Vitals Vital Signs Date Temp Pulse Resp B/P (MAP) Pulse Ox O2 O2 Flow FiO2 Time Delivery Rate 09/17/18 83 08:00 09/17/18 98.2 19 120/70 95 07:54 (87) 09/16/18 Room Air 20:00 Intake and Output 09/16/18 09/16/18 09/17/18 1515:00 23:00 07:00 IntakeIntake Total 900 ml 50 ml OutputOutput Total 250 ml 250 ml BalanceBalance 650 ml -200 ml Easily arousable. Noncooperative and does not follow commands Clear to auscultation bilaterally Regular rate and rhythm Soft nontender nondistended normoactive bowel sounds No edema Results Result Diagram: 09/17/18 0538 09/17/18 0538 Medications Medications Current Medications IV Flush (NS 3 ml) 3 ml PER PROTOCOL IV ; Start 09/15/18 at 22:00 Ondansetron HCl (Zofran Inj) 4 mg Q6H PRN IV NAUSEA/VOMITING; Start 09/15/18 at 22:00 Acetaminophen (Tylenol Tab) 650 mg Q6H PRN PO .PAIN 1-3 OR TEMP; Start 09/15/18 at 22:00 Docusate Sodium (Colace) 100 mg Q12H PRN PO .CONSTIPATION; Start 09/15/18 at 22:00 Bisacodyl (Dulcolax) 5 mg DAILY PRN PO .CONSTIPATION; Start 09/15/18 at 22:00 Heparin Sodium (Porcine) (Heparin (5000 Units/1ml)) 5,000 unit BID SC Last administered on 09/17/18at 08:30; Admin Dose 5,000 UNIT; Start 09/16/18 at 21:00 Valproate Sodium 500 mg/Sodium Chloride 55 ml @ 55 mls/hr BID IVPB Last administered on 09/17/18at 08:24; Admin Dose 55 MLS/HR; Start 09/16/18 at 23:00 Haloperidol (Haldol) 5 mg DAILY PO ; Start 09/16/18 at 17:00 Benztropine Mesylate (Cogentin) 1 mg DAILY PO ; Start 09/16/18 at 17:00 Nitrofurantoin Macrocrystals (Macrobid) 100 mg BID PO Last administered on 09/16/18at 00:00; Admin Dose 100 MG; Start 09/16/18 at 22:00; Stop 09/21/18 at 21:59 VTE Prophylaxis Risk score (from Ns)>0 risk: 3 SCD applied (from [facility]): Yes Lines/Catheters IV Catheter Type: Saline Lock Central line still needed: No Richardson in Place: No Assessment/Plan Assessment/Plan 43-year-old female with possible seizure versus pseudoseizure Chronic depression with bizarre behavior Continue current therapy MRI of brain The EEG was not done Neurology and psych follow-up Discharge planning to psych facility PHAM FOSTER MD September 17, 2018 11:57
--- NOTE | 2018-09-17 13:38 | PN ---
Date/Time of Note Date/Time of Note DATE: 09/17/18 TIME: 13:31 Assessment/Plan VTE Prophylaxis Risk score (from Ns)>0 risk: 3 SCD applied (from Ns): Yes Pharmacological prophylaxis: heparin Lines/Catheters IV Catheter Type (from Nrs): Saline Lock Urinary Cath still in place: No Assessment/Plan Assessment/Plan 1. Seizure versus pseudoseizure, on valproate, awaiting for MRI, Follow up with neurology 2. Psychiatric disorder, suicidal ideation, sitter 3. UTI, on macrobid 4. DVT prophylaxis: heparin Result Diagram: 09/17/1853709/17/18537 Results 24hrs Laboratory Tests Test 09/16/18 17:28 09/17/18 05:38 Lactic Acid Level 0.7 Creatine Kinase 47 Valproic Acid (Depakene) Level < 10 L 43 L White Blood Count 5.1 # Red Blood Count 4.25 Hemoglobin 12.6 Hematocrit 38.5 Mean Corpuscular Volume 90.6 Mean Corpuscular Hemoglobin 29.6 Mean Corpuscular Hemoglobin Concent 32.7 Red Cell Distribution Width 13.3 Platelet Count 243 Mean Platelet Volume 10.7 H Immature Granulocytes % 0.200 Neutrophils % 41.8 Lymphocytes % 47.2 Monocytes % 8.0 Eosinophils % 2.0 Basophils % 0.8 Nucleated Red Blood Cells % 0.0 Immature Granulocytes # 0.010 Neutrophils # 2.1 Lymphocytes # 2.4 Monocytes # 0.4 Eosinophils # 0.1 Basophils # 0.0 Nucleated Red Blood Cells # 0.0 Sodium Level 142 Potassium Level 3.9 Chloride Level 110 Carbon Dioxide Level 27 Anion Gap 5 Blood Urea Nitrogen 10 Creatinine 0.70 Est Glomerular Filtrat Rate mL/min > 60 Glucose Level 86 Calcium Level 9.0 Subjective 24 Hr Interval Summary Free Text/Dictation patient is alert and oriented today no distress Exam/Review of Systems Exam Vitals Vital Signs Date Temp Pulse Resp B/P (MAP) Pulse Ox O2 O2 Flow FiO2 Time Delivery Rate 09/17/18 98.1 96 19 120/65 96 12:28 (83) 09/16/18 Room Air 20:00 Intake and Output 09/16/18 09/16/18 09/17/18 1515:00 23:00 07:00 IntakeIntake Total 900 ml 50 ml OutputOutput Total 250 ml 250 ml BalanceBalance 650 ml -200 ml Constitutional: alert, oriented, well developed, obese Head: normocephalic, atraumatic Eyes: nl conjunctiva, EOMI, nl lids ENMT: nl external ears & nose, nl lips & teeth, nl nasal mucosa & septum Neck: supple, non-tender Respiratory: clear to auscultation, normal air movement; No congested cough, No crackles/rales, No diminished breath sounds, No int ercostal retraction, No labored breathing, No respirations, No tactile fremitus, No wheezing, No other Cardiovascular: regular rate and rhythm, nl pulses; No bruits, No diastolic murmur, No edema, No gallop, No irregular rhythm, No jugular venous distention (JVD), No murmurs/extra sounds, No rub, No systolic murmur, No S3, No S4, No other Gastrointestinal: soft, nl liver, spleen, non-tender Musculoskeletal: nl extremities to inspection Extremities: normal pulses; No calf tenderness, No cyanosis, No clubbing, No edema, No pitting pedal edema, No palpable cord, No tenderness, No other Neurological: [employer] II-XII intact, nl mental status, nl speech, nl strength Results Results 24hrs Laboratory Tests Test 09/16/18 17:28 09/17/18 05:38 Lactic Acid Level 0.7 Creatine Kinase 47 Valproic Acid (Depakene) Level < 10 L 43 L White Blood Count 5.1 # Red Blood Count 4.25 Hemoglobin 12.6 Hematocrit 38.5 Mean Corpuscular Volume 90.6 Mean Corpuscular Hemoglobin 29.6 Mean Corpuscular Hemoglobin Concent 32.7 Red Cell Distribution Width 13.3 Platelet Count 243 Mean Platelet Volume 10.7 H Immature Granulocytes % 0.200 Neutrophils % 41.8 Lymphocytes % 47.2 Monocytes % 8.0 Eosinophils % 2.0 Basophils % 0.8 Nucleated Red Blood Cells % 0.0 Immature Granulocytes # 0.010 Neutrophils # 2.1 Lymphocytes # 2.4 Monocytes # 0.4 Eosinophils # 0.1 Basophils # 0.0 Nucleated Red Blood Cells # 0.0 Sodium Level 142 Potassium Level 3.9 Chloride Level 110 Carbon Dioxide Level 27 Anion Gap 5 Blood Urea Nitrogen 10 Creatinine 0.70 Est Glomerular Filtrat Rate mL/min > 60 Glucose Level 86 Calcium Level 9.0 Medications Medication Current Medications IV Flush (NS 3 ml) 3 ml PER PROTOCOL IV ; Start 09/15/18 at 22:00 Ondansetron HCl (Zofran Inj) 4 mg Q6H PRN IV NAUSEA/VOMITING; Start 09/15/18 at 22:00 Acetaminophen (Tylenol Tab) 650 mg Q6H PRN PO .PAIN 1-3 OR TEMP; Start 09/15/18 at 22:00 Docusate Sodium (Colace) 100 mg Q12H PRN PO .CONSTIPATION; Start 09/15/18 at 22:00 Bisacodyl (Dulcolax) 5 mg DAILY PRN PO .CONSTIPATION; Start 09/15/18 at 22:00 Heparin Sodium (Porcine) (Heparin (5000 Units/1ml)) 5,000 unit BID SC Last administered on 09/17/18at 08:30; Admin Dose 5,000 UNIT; Start 09/16/18 at 21:00 Valproate Sodium 500 mg/Sodium Chloride 55 ml @ 55 mls/hr BID IVPB Last administered on 09/17/18at 08:24; Admin Dose 55 MLS/HR; Start 09/16/18 at 23:00 Haloperidol (Haldol) 5 mg DAILY PO ; Start 09/16/18 at 17:00 Benztropine Mesylate (Cogentin) 1 mg DAILY PO ; Start 09/16/18 at 17:00 Nitrofurantoin Macrocrystals (Macrobid) 100 mg BID PO Last administered on 09/16/18at 00:00; Admin Dose 100 MG; Start 09/16/18 at 22:00; Stop 09/21/18 at 21:59 SOPHIA MALDONADO MD September 17, 2018 13:38
--- NOTE | 2018-09-17 15:23 | CONS ---
Assessment/Plan Assessment/Plan Hospital Course 43 yo F with presumed psychiatric history and reported hx of seizures who presents for evaluation of a witnessed seizure episode. On 09/16, she was additionally noted to have movements concerning for seizure, for which a rapid response was called. On 09/17, I personally witnessed a spell that appeared to be nonphysiologic. Of note, the pt reportedly refused her EEG on 09/16.. CTH is unrevealing. P: Await MRI brain without contrast for further characterization Hold Keppra; Cont depakote 500mg BID; titrate PRN to goal level 50-100. Ativan IV PRN prolonged seizure Cont other medical management per primary Consider psych eval Will follow clinically Consultation Date/Type/Reason Admit Date/Time September 16, 2018 at 18:43 Type of Consult Neurology Reason for Consultation eval for seizures Requesting Provider: MARK CORTEZ MD Date/Time of Note DATE: 09/17/18 TIME: 15:23 24 HR Interval Summary Free Text/Dictation Continues acute care. The pt states that she has a hx of seizures. She also requested IV benadryl. When she was told no, she had an episode of eye twitching. Exam Vital Signs Vitals Vital Signs Date Temp Pulse Resp B/P (MAP) Pulse Ox O2 O2 Flow FiO2 Time Delivery Rate 09/17/18 98.2 90 19 110/64 94 15:07 (79) 09/16/18 Room Air 20:00 Intake and Output 09/16/18 09/16/18 09/17/18 1414:59 22:59 06:59 IntakeIntake Total 900 ml 50 ml OutputOutput Total 250 ml 250 ml BalanceBalance 650 ml -200 ml Exam PE: Gen Appearance: No Apparent Distress HEENT: Normocephalic Cardiovascular: Regular rate Lungs: Clear bilaterally Abdomen: Soft Extremities: Dry NE: The patient was alert and oriented. Language was normal. Fund of knowledge was normal. Pupils were equal and reactive to light. There was no afferent pupillary defect. Visual guzman were normal. Funduscopic examination was limited. Extra-ocular movements were full. Ptosis was absent. There was no nystagmus. Facial sensation was normal. Face was symmetric with normal strength. Hearing was intact. Palate movements were normal. Neck strength was normal. There was normal tongue bulk and speed of movement. Tone was normal. Muscle bulk was normal. I did not see fasciculations. Arms and legs were strong. Vibration sensation was normal. Temperature and pinprick sensation was normal. Rapid alternating movements were normal. There was no dysmetria. There was no intention tremor. Gait was deferred due to bedrest. Arm and leg reflexes were 2+ and symmetric. Nugent's sign was absent. Plantar responses were flexor. KEVIN ROBERTS NP September 17, 2018 15:23 VINCE KEYS September 18, 2018 15:20
[2018-09-18] VITALS (11 sets, daily range): BP systolic 107–134; BP diastolic 61–72; PULSE 76–112; RESP 16–20
[2018-09-18] MEDS: VALPROATE INJ 500 MG in SOD CHLORIDE 0.9% 50 ML IVPB SCH ×2 (08:23→20:50)
[2018-09-18] MEDS: HALOPERIDOL 5 MG TAB PO SCH ×2 (08:24→09:00)
[2018-09-18] MEDS: BENZTROPINE 1 MG TAB PO SCH ×2 (08:24→09:00)
[2018-09-18] MEDS: NITROFURANTOIN (SR) 100 MG CAP PO SCH ×2 (09:00→21:00)
[2018-09-18] MEDS: HEPARIN 5,000 UNIT/1 ML VIAL SC SCH ×2 (09:01→21:29)
--- NOTE | 2018-09-18 09:56 | PN ---
Date/Time of Note Date/Time of Note DATE: 09/18/18 TIME: 09:53 Subjective Patient is alert and comfortable. Asking for IV narcotics. She reports that she has pain due to seizures. Objective Vitals Vital Signs Date Temp Pulse Resp B/P (MAP) Pulse Ox O2 O2 Flow FiO2 Time Delivery Rate 09/18/18 104 08:29 09/18/18 97.7 16 107/67 98 Room Air 07:13 (80) Intake and Output 09/17/18 09/17/18 09/18/18 1515:00 23:00 07:00 IntakeIntake Total 655 ml 400 ml OutputOutput Total 560 ml 700 ml BalanceBalance 95 ml -300 ml Clear to auscultation bilaterally Regular rate and rhythm Soft nontender nondistended normoactive bowel sounds No edema Nonfocal Results Result Diagram: 09/17/18 0538 09/17/18 0538 Medications Medications Current Medications IV Flush (NS 3 ml) 3 ml PER PROTOCOL IV ; Start 09/15/18 at 22:00 Ondansetron HCl (Zofran Inj) 4 mg Q6H PRN IV NAUSEA/VOMITING; Start 09/15/18 at 22:00 Acetaminophen (Tylenol Tab) 650 mg Q6H PRN PO .PAIN 1-3 OR TEMP; Start 09/15/18 at 22:00 Docusate Sodium (Colace) 100 mg Q12H PRN PO .CONSTIPATION; Start 09/15/18 at 22:00 Bisacodyl (Dulcolax) 5 mg DAILY PRN PO .CONSTIPATION; Start 09/15/18 at 22:00 Heparin Sodium (Porcine) (Heparin (5000 Units/1ml)) 5,000 unit BID SC Last administered on 09/18/18at 09:01; Admin Dose 5,000 UNIT; Start 09/16/18 at 21:00 Valproate Sodium 500 mg/Sodium Chloride 55 ml @ 55 mls/hr BID IVPB Last ad ministered on 09/18/18at 08:23; Admin Dose 55 MLS/HR; Start 09/16/18 at 23:00 Haloperidol (Haldol) 5 mg DAILY PO ; Start 09/16/18 at 17:00 Benztropine Mesylate (Cogentin) 1 mg DAILY PO ; Start 09/16/18 at 17:00 Nitrofurantoin Macrocrystals (Macrobid) 100 mg BID PO Last administered on 09/17/18at 21:58; Admin Dose 100 MG; Start 09/16/18 at 22:00; Stop 09/21/18 at 21:59 VTE Prophylaxis Risk score (from Ns)>0 risk: 1 [place] [facility] [place] Lines/Catheters IV Catheter Type: Saline Lock Richardson in Place: No Assessment/Plan Assessment/Plan 43-year-old female with seizure versus pseudoseizure Chronic depression Schizoaffective disorder Continue IV valproate MRI of brain is pending Neurology and psych follow-up Discharge planning to psych facility once cleared by neurology PHAM FOSTER MD September 18, 2018 09:56
[2018-09-18] MEDS ORDERED: LORAZEPAM 2 MG INJ IV ONE ×2 (13:00)
--- NOTE | 2018-09-18 13:01 | EN ---
Date/Time of Note Date/Time of Note DATE: 09/18/18 TIME: 12:53 Event Note Medicine Medicine Event Note Rapid response called in MRI control room for seizure-like activity around 12:35. I arrived about 7 minutes later. According to roving technician, the patient had received IV contrast then had been able to walk from [facility] to MRI table. She underwent the study uneventfully. After the study she was found to be having seizure-like activity. When I arrived the patient eyes were closed and fasciculating. Upon forced opening of the eyes, her globes were rolled upwards. Her left fist was tightly clenched and she had irregular clonic jerks of both arms but not legs. She was slightly tachy to low 100s. Unfortunately we did not have pulse ox or any other vitals available. Also no Ativan or other antiepileptics available. When passively moving the patient's arms, she was actually found to have relatively normal tone. When I dropped her extended arm above her head multiple times, she either flexed or extended the arm to protect her face. The patient was brought back to her telemetry bed. Continued having clonic movements and eye twitching during transportation. On arrival back on the floor she was given Ativan 2mg IV x1. Limb and eye movements immediately stopped, then she released an exaggerated sigh. She was asked how she was doing, and she sighed. Then asked to open her eyes and she shook her head. Plan: - I suspect these limb and eye movements are not true seizure activity. - I will send a serum lactate. In true seizure this may be expected to be elevated. - Further plan per hospitalist and neurology. Consider psych consult. NIDHI BRANDT MD September 18, 2018 13:01
--- NOTE | 2018-09-18 15:49 | CONS ---
Assessment/Plan Assessment/Plan Hospital Course 43 yo F with presumed psychiatric history and reported hx of seizures who presents for evaluation of a witnessed seizure episode. On 09/16, she was noted to have additional spells concerning for seizure, for which a rapid response was activated. On 09/17, she reportedly had a witnessed spell that appeared to be nonphysiologic. Of note, the pt reportedly refused her EEG on 09/16.. MRI Brain is unrevealing. UA + UDS + THC P: Hold Keppra; Cont depakote 500mg BID; titrate PRN to goal level 50-100. Ativan IV PRN prolonged seizure Cont other medical management per primary Consider psych eval Will follow clinically Consultation Date/Type/Reason Admit Date/Time September 16, 2018 at 18:43 Type of Consult Neurology Reason for Consultation spells Requesting Provider: MARK CORTEZ MD Date/Time of Note DATE: 09/18/18 TIME: 15:46 24 HR Interval Summary Free Text/Dictation Continues acute care Exam Vital Signs Vitals Vital Signs Date Temp Pulse Resp B/P (MAP) Pulse Ox O2 O2 Flow FiO2 Time Delivery Rate 09/18/18 97 13:31 09/18/18 98.0 19 134/72 91 Room Air 12:56 (92) Intake and Output 09/17/18 09/17/18 09/18/18 1515:00 23:00 07:00 IntakeIntake Total 655 ml 400 ml OutputOutput Total 560 ml 700 ml BalanceBalance 95 ml -300 ml VINCE KEYS September 18, 2018 15:49
--- NOTE | 2018-09-18 16:47 | PN ---
Date/Time of Note Date/Time of Note DATE: 09/18/18 TIME: 16:46 Assessment/Plan VTE Prophylaxis Risk score (from Nsg)>0 risk: 1 SCD applied (from Nsg): Yes Pharmacological prophylaxis: heparin Lines/Catheters IV Catheter Type (from Nrsg): Saline Lock Urinary Cath still in place: No Assessment/Plan Hospital Course 43 yo female with depression presents with seizure vs pseudoseizure - Not clear if these are actual seizures vs pseudoseiurze vs malingering. She has refused EEG - Copntinue AEDs per neurology - Depression management per psychiatry Result Diagram: 09/17/1853709/17/18 0538 Results 24hrs Laboratory Tests Test 09/18/18 14:24 Lactic Acid Level 0.7 Subjective 24 Hr Interval Summary Free Text/Dictation Had another possible seizure vs malingering during MRI today MRI without acute pathology Exam/Review of Systems Exam Vitals Vital Signs Date Temp Pulse Resp B/P (MAP) Pulse Ox O2 O2 Flow FiO2 Time Delivery Rate 09/18/18 76 16:27 09/18/18 98.0 16 110/69 95 Room Air 16:14 (83) Intake and Output 09/17/18 09/17/18 09/18/18 1515:00 23:00 07:00 IntakeIntake Total 655 ml 400 ml OutputOutput Total 560 ml 700 ml BalanceBalance 95 ml -300 ml Constitutional: alert, oriented, well developed Psych: no complaints, nl mood/affect Head: normocephalic, atraumatic Eyes: nl conjunctiva, EOMI, nl lids, nl sclera, PERRL ENMT: nl external ears & nose, nl lips & teeth, nl nasal mucosa & septum Neck: supple, non-tender Respiratory: clear to auscultation, normal air movement Cardiovascular: regular rate and rhythm, nl pulses Gastrointestinal: soft, nl liver, spleen, non-tender Musculoskeletal: nl extremities to inspection, nl gait and stance Extremities: normal pulses Neurological: HIGHWAY INSPECTOR II-XII intact, nl mental status, nl speech, nl strength Skin: nl turgor; No rash or lesions Lymph: nl lymph nodes Results Results 24hrs Laboratory Tests Test 09/18/18 14:24 Lactic Acid Level 0.7 Medications Medication Current Medications IV Flush (NS 3 ml) 3 ml PER PROTOCOL IV ; Start 09/15/18 at 22:00 Ondansetron HCl (Zofran Inj) 4 mg Q6H PRN IV NAUSEA/VOMITING; Start 09/15/18 at 22:00 Acetaminophen (Tylenol Tab) 650 mg Q6H PRN PO .PAIN 1-3 OR TEMP; Start 09/15/18 at 22:00 Docusate Sodium (Colace) 100 mg Q12H PRN PO .CONSTIPATION; Start 09/15/18 at 22:00 Bisacodyl (Dulcolax) 5 mg DAILY PRN PO .CONSTIPATION; Start 09/15/18 at 22:00 Heparin Sodium (Porcine) (Heparin (5000 Units/1ml)) 5,000 unit BID SC Last administered on 09/18/18at 09:01; Admin Dose 5,000 UNIT; Start 09/16/18 at 21:00 Valproate Sodium 500 mg/Sodium Chloride 55 ml @ 55 mls/hr BID IVPB Last administered on 09/18/18at 08:23; Admin Dose 55 MLS/HR; Start 09/16/18 at 23:00 Haloperidol (Haldol) 5 mg DAILY PO ; Start 09/16/18 at 17:00 Benztropine Mesylate (Cogentin) 1 mg DAILY PO ; Start 09/16/18 at 17:00 Nitrofurantoin Macrocrystals (Macrobid) 100 mg BID PO Last administered on 09/17/18at 21:58; Admin Dose 100 MG; Start 09/16/18 at 22:00; Stop 09/21/18 at 21:59 MARK CORTEZ MD September 18, 2018 16:47
[2018-09-18] MEDS: CEFTRIAXONE 1 GM/50 ML (PMX) 50 ML IVPB SCH (22:48)
[2018-09-18] MEDS ORDERED: LORAZEPAM 2 MG INJ IV PRN (23:30)
[2018-09-19] VITALS (9 sets, daily range): BP systolic 109–125; BP diastolic 53–76; PULSE 77–99; RESP 18–22
[2018-09-19] MEDS: HALOPERIDOL 5 MG TAB PO SCH (08:45)
[2018-09-19] MEDS: BENZTROPINE 1 MG TAB PO SCH (08:45)
[2018-09-19] MEDS: VALPROATE INJ 500 MG in SOD CHLORIDE 0.9% 50 ML IVPB SCH ×3 (08:50→22:31)
[2018-09-19] MEDS: HEPARIN 5,000 UNIT/1 ML VIAL SC SCH ×2 (08:55→21:04)
[2018-09-19] MEDS ORDERED: LORAZEPAM 2 MG INJ IV PRN (09:00)
[2018-09-19] MEDS ORDERED: HALO5TAB23 PO (09:25)
[2018-09-19] MEDS ORDERED: BENZ1TAB7 PO (09:25)
[2018-09-19] MEDS ORDERED: DIVA-48 PO (09:25)
--- NOTE | 2018-09-19 09:31 | PDOCDIS ---
Discharge Instructions CONDITION [id number] Patient Condition: [id number] Good HOME CARE INSTRUCTIONS: [id number] Diet Instructions: [id number] Regular ACTIVITY: [id number] Activity Restrictions: [id number] No Restrictions FOLLOW UP/APPOINTMENTS Follow-up Plan pcp [address] Mosley 1 week PHAM FOSTER MD September 19, 2018 09:31
--- NOTE | 2018-09-19 11:17 | CONS ---
Assessment/Plan Assessment/Plan Hospital Course 43 yo F with presumed psychiatric history and reported hx of seizures who presents for evaluation of a witnessed seizure episode. On 09/16, she was noted to have additional spells concerning for seizure, for which a rapid response was activated. On 09/17, she reportedly had a witnessed spell that appeared to be nonphysiologic. Of note, the pt refused her EEG on 09/16.. MRI Brain is unremarkable. UA + UDS + THC P: Cont depakote 500mg BID Ativan iv prn prolonged seizure > 5min Neurologically cleared for d/c to inpatient psych when medically able Will sign off for now; please call w/ ?s Consultation Date/Type/Reason Admit Date/Time September 16, 2018 at 18:43 Type of Consult Neurology Reason for Consultation spells Requesting Provider: MARK CORTEZ MD Date/Time of Note DATE: 09/19/18 TIME: 11:16 24 HR Interval Summary Free Text/Dictation Continues acute care Noted to be intermittently responsive.. Exam Vital Signs Vitals Vital Signs Date Temp Pulse Resp B/P (MAP) Pulse Ox O2 O2 Flow FiO2 Time Delivery Rate 09/19/18 93 08:01 09/19/18 98.1 20 121/66 94 Room Air 07:09 (84) Intake and Output 09/18/18 09/18/18 09/19/18 1515:00 23:00 07:00 IntakeIntake Total 560 ml 480 ml OutputOutput Total 1500 ml BalanceBalance -940 ml 480 ml VINCE KEYS September 19, 2018 11:17
--- NOTE | 2018-09-19 11:57 | DS ---
DATE OF ADMISSION: 09/16/2018 DATE OF DISCHARGE: 09/19/2018 DISCHARGE DIAGNOSES: 1. A 43-year-old female with seizure versus pseudoseizure. 2. Chronic depression. 3. Schizoaffective disorder. HOSPITAL COURSE: A 43-year-old female with chronic depression and schizoaffective disorder, was bein g transferred to a psych facility where she had seizure-like activity en route. The patient was admi tted to [facility]. She was started on empiric antiepileptics. She was seen in co nsultation by neurology. Depakote was recommended. The patient was also evaluated by psychiatry. S he was exhibiting bizarre behavior during the hospitalization and refused her oral medications. MRI of the brain was normal. The patient is in stable condition for transition to a psych facility. MEDICATIONS ON DISCHARGE: Include the followin. Cogentin 1 mg p.o. daily. 2. Depakote 500 mg p.o. t.i.d. 3. Continue Xanax, Abilify and Bupropion as previously. Follow up with PCP and neurology as outpatient. Dictated By: PHAM RICHARDSON/NTS Conf#: [id number] DID#: [id number] CC: VINCE KEYS; MARK CORTEZ MD;*[facility]*
[2018-09-19] MEDS: LORAZEPAM 2 MG INJ IV PRN (16:53)
[2018-09-19] MEDS ORDERED: KETOROLAC 15 MG INJ IV STA (20:27)
[2018-09-19] MEDS: HALOPERIDOL 5 MG INJ IM SCH (21:03)
[2018-09-19] MEDS: ONDANSETRON 4 MG INJ IV PRN (21:03)
[2018-09-19] MEDS: CEFTRIAXONE 1 GM/50 ML (PMX) 50 ML IVPB SCH (21:21)
[2018-09-20 03:31] VITALS: PULSE 94
[2018-09-20 07:40] VITALS: BP 120/71; PULSE 75; RESP 18
[2018-09-20] MEDS: HALOPERIDOL 5 MG INJ IM SCH (08:23)
[2018-09-20] MEDS: BENZTROPINE 1 MG TAB PO SCH (08:24)
[2018-09-20] MEDS: VALPROATE INJ 500 MG in SOD CHLORIDE 0.9% 50 ML IVPB SCH ×2 (08:24→20:37)
[2018-09-20] MEDS: HEPARIN 5,000 UNIT/1 ML VIAL SC SCH ×2 (08:32→20:38)
--- NOTE | 2018-09-20 10:17 | PN ---
Date/Time of Note Date/Time of Note DATE: 09/20/18 TIME: 10:15 Subjective No new complaints Objective Vitals Vital Signs Date Temp Pulse Resp B/P (MAP) Pulse Ox O2 O2 Flow FiO2 Time Delivery Rate 09/20/18 97.9 75 18 120/71 96 Room Air 07:40 (87) Intake and Output 09/19/18 09/19/18 09/20/18 1515:00 23:00 07:00 IntakeIntake Total 360 ml 150 ml 55 ml BalanceBalance 360 ml 150 ml 55 ml Clear to auscultation bilaterally Regular rate and rhythm Soft nontender nondistended normoactive bowel sounds No edema Nonfocal Results Result Diagram: 09/17/1838 09/17/18537 Medications Medications Current Medications IV Flush (NS 3 ml) 3 ml PER PROTOCOL IV ; Start 09/15/18 at 22:00 Ondansetron HCl (Zofran Inj) 4 mg Q6H PRN IV NAUSEA/VOMITING Last administered on 09/19/18at 21:03; Admin Dose 4 MG; Start 09/15/18 at 22:00 Acetaminophen (Tylenol Tab) 650 mg Q6H PRN PO .PAIN 1-3 OR TEMP; Start 09/15/18 at 22:00 Docusate Sodium (Colace) 100 mg Q12H PRN PO .CONSTIPATION; Start 09/15/18 at 22:00 Bisacodyl (Dulcolax) 5 mg DAILY PRN PO .CONSTIPATION; Start 09/15/18 at 22:00 Heparin Sodium (Porcine) (Heparin (5000 Units/1ml)) 5,000 unit BID SC Last administered on 09/20/18at 08:32; Admin Dose 5,000 UNIT; Start 09/16/18 at 21:00 Valproate Sodium 500 mg/Sodium Chloride 55 ml @ 55 mls/hr BID IVPB Last administered on 09/20/18at 08:24; Admin Dose 55 MLS/HR; Start 09/16/18 at 23:00 Benztropine Mesylate (Cogentin) 1 mg DAILY PO ; Start 09/16/18 at 17:00 Ceftriaxone Sodium 50 ml @ 100 mls/hr Q24H IVPB Last administered on 09/19/18at 21:21; Admin Dose 100 MLS/HR; Start 09/18/18 at 22:00; Stop 09/20/18 at 22:00 Lorazepam (Ativan) 0.5 mg Q8H PRN IV ANXIETY Last administered on 09/19/18at 16:53; Admin Dose 0.5 MG; Start 09/19/18 at 16:00 Haloperidol (Haldol) 5 mg DAILY IM Last administered on 09/20/18at 08:23; Admin Dose 5 MG; Start 09/19/18 at 21:00 VTE Prophylaxis Risk score (from Ns)>0 risk: 2 SCD applied (from Ns): Yes Lines/Catheters IV Catheter Type: Saline Lock Richardson in Place: No Assessment/Plan Assessment/Plan 43-year-old female with seizure versus pseudoseizure Chronic depression Schizoaffective disorder Patient is medically cleared for transfer to a psych facility Continue Depakote Plan of care was discussed with Dr. Mosley who agreed with discharge planning PHAM FOSTER MD September 20, 2018 10:17
[2018-09-20] MEDS: KETOROLAC 15 MG INJ IV PRN (11:31)
[2018-09-20 14:00] VITALS: BP 103/59; PULSE 74; RESP 18
[2018-09-20 19:09] VITALS: BP 117/66; PULSE 80; RESP 18
[2018-09-20] MEDS: CEFTRIAXONE 1 GM/50 ML (PMX) 50 ML IVPB SCH (21:13)
[2018-09-21 02:07] VITALS: BP 103/60; PULSE 75; RESP 18
[2018-09-21 08:19] VITALS: BP 108/58; PULSE 84; RESP 16
[2018-09-21] MEDS: ONDANSETRON 4 MG INJ IV PRN (08:41)
[2018-09-21] MEDS: KETOROLAC 15 MG INJ IV PRN ×2 (08:44→18:42)
[2018-09-21] MEDS: VALPROATE INJ 500 MG in SOD CHLORIDE 0.9% 50 ML IVPB SCH ×2 (08:46→21:07)
[2018-09-21] MEDS: BENZTROPINE 1 MG TAB PO SCH (08:49)
[2018-09-21] MEDS: HALOPERIDOL 5 MG INJ IM SCH (08:52)
[2018-09-21] MEDS: HEPARIN 5,000 UNIT/1 ML VIAL SC SCH ×2 (08:52→21:08)
--- NOTE | 2018-09-21 09:39 | PN ---
Date/Time of Note Date/Time of Note DATE: 09/21/18 TIME: 09:38 Subjective Alert and comfortable. Objective Vitals Vital Signs Date Temp Pulse Resp B/P (MAP) Pulse Ox O2 O2 Flow FiO2 Time Delivery Rate 09/21/18 98.6 84 16 108/58 97 08:19 (75) 09/20/18 Room Air 14:00 Intake and Output 09/20/18 09/20/18 09/21/18 1515:00 23:00 07:00 IntakeIntake Total 1205 ml BalanceBalance 1205 ml Clear to auscultation bilaterally Regular rate and rhythm Soft nontender nondistended normoactive bowel sounds No edema Nonfocal Results Result Diagram: 09/17/1838 09/17/18537 Medications Medications Current Medications IV Flush (NS 3 ml) 3 ml PER PROTOCOL IV ; Start 09/15/18 at 22:00 Ondansetron HCl (Zofran Inj) 4 mg Q6H PRN IV NAUSEA/VOMITING Last administered on 09/21/18at 08:41; Admin Dose 4 MG; Start 09/15/18 at 22:00 Acetaminophen (Tylenol Tab) 650 mg Q6H PRN PO .PAIN 1-3 OR TEMP; Start 09/15/18 at 22:00 Docusate Sodium (Colace) 100 mg Q12H PRN PO .CONSTIPATION; Start 09/15/18 at 22:00 Bisacodyl (Dulcolax) 5 mg DAILY PRN PO .CONSTIPATION; Start 09/15/18 at 22:00 Heparin Sodium (Porcine) (Heparin (5000 Units/1ml)) 5,000 unit BID SC Last administered on 09/21/18at 08:52; Admin Dose 5,000 UNIT; Start 09/16/18 at 21:00 Valproate Sodium 500 mg/Sodium Chloride 55 ml @ 55 mls/hr BID IVPB Last administered on 09/21/18at 08:46; Admin Dose 55 MLS/HR; Start 09/16/18 at 23:00 Benztropine Mesylate (Cogentin) 1 mg DAILY PO ; Start 09/16/18 at 17:00 Lorazepam (Ativan) 0.5 mg Q8H PRN IV ANXIETY Last administered on 09/19/18at 16:53; Admin Dose 0.5 MG; Start 09/19/18 at 16:00 Haloperidol (Haldol) 5 mg DAILY IM Last administered on 09/21/18at 08:52; Admin Dose 5 MG; Start 09/19/18 at 21:00 Ketorolac Tromethamine (Toradol) 15 mg Q6H PRN IV PAIN Last administered on 09/21/18at 08:44; Admin Dose 15 MG; Start 09/20/18 at 11:00; Stop 09/23/18 at 10:59 VTE Prophylaxis Risk score (from Ns)>0 risk: 4 SCD applied (from Nsg): Yes Lines/Catheters IV Catheter Type: Saline Lock Richardson in Place: No Assessment/Plan Assessment/Plan 43-year-old female with seizure disorder versus pseudoseizure Chronic depression Schizoaffective disorder UTI Patient is medically cleared for transfer to psych facility Continue Depakote Await placement PHAM FOSTER MD September 21, 2018 09:39
[2018-09-21 11:56] VITALS: BP 109/63; PULSE 100; RESP 16
[2018-09-21] MEDS: LORAZEPAM 2 MG INJ IV PRN (13:47)
[2018-09-21 20:18] VITALS: BP 107/61; PULSE 68; RESP 18
[2018-09-22 02:00] VITALS: BP 119/62; PULSE 75; RESP 18
[2018-09-22] MEDS: ONDANSETRON 4 MG INJ IV PRN (08:51)
[2018-09-22] MEDS: HALOPERIDOL 5 MG INJ IM SCH (08:51)
[2018-09-22] MEDS: KETOROLAC 15 MG INJ IV PRN ×2 (08:51→15:11)
[2018-09-22] MEDS: BENZTROPINE 1 MG TAB PO SCH (08:52)
[2018-09-22] MEDS: HEPARIN 5,000 UNIT/1 ML VIAL SC SCH ×2 (08:52→20:18)
[2018-09-22 09:10] VITALS: BP 104/69; PULSE 110
--- NOTE | 2018-09-22 09:59 | PN ---
Date/Time of Note Date/Time of Note DATE: 09/22/18 TIME: 09:57 Subjective Patient is alert and comfortable. Continues to have suicidal ideation Objective Vitals Vital Signs Date Temp Pulse Resp B/P (MAP) Pulse Ox O2 O2 Flow FiO2 Time Delivery Rate 09/22/18 97.5 110 104/69 97 Room Air 09:10 (81) 09/22/18 18 02:00 Intake and Output 09/21/18 09/21/18 09/22/18 1515:00 23:00 07:00 IntakeIntake Total 815 ml 295 ml BalanceBalance 815 ml 295 ml Clear to auscultation bilaterally Regular rate and rhythm Soft nontender nondistended normoactive bowel sounds No edema Nonfocal Medications Medications Current Medications IV Flush (NS 3 ml) 3 ml PER PROTOCOL IV ; Start 09/15/18 at 22:00 Ondansetron HCl (Zofran Inj) 4 mg Q6H PRN IV NAUSEA/VOMITING Last administered on 09/22/18at 08:51; Admin Dose 4 MG; Start 09/15/18 at 22:00 Acetaminophen (Tylenol Tab) 650 mg Q6H PRN PO .PAIN 1-3 OR TEMP; Start 09/15/18 at 22:00 Docusate Sodium (Colace) 100 mg Q12H PRN PO .CONSTIPATION; Start 09/15/18 at 22:00 Bisacodyl (Dulcolax) 5 mg DAILY PRN PO .CONSTIPATION; Start 09/15/18 at 22:00 Heparin Sodium (Porcine) (Heparin (5000 Units/1ml)) 5,000 unit BID SC Last administered on 09/22/18at 08:52; Admin Dose 5,000 UNIT; Start 09/16/18 at 21:00 Valproate Sodium 500 mg/Sodium Chloride 55 ml @ 55 mls/hr BID IVPB Last administered on 09/21/18at 21:07; Admin Dose 55 MLS/HR; Start 09/16/18 at 23:00 Benztropine Mesylate (Cogentin) 1 mg DAILY PO ; Start 09/16/18 at 17:00 Lorazepam (Ativan) 0.5 mg Q8H PRN IV ANXIETY Last administered on 09/21/18at 13:47; Admin Dose 0.5 MG; Start 09/19/18 at 16:00 Haloperidol (Haldol) 5 mg DAILY IM Last administered on 09/22/18at 08:51; Admin Dose 5 MG; Start 09/19/18 at 21:00 Ketorolac Tromethamine (Toradol) 15 mg Q6H PRN IV PAIN Last administered on 09/22/18at 08:51; Admin Dose 15 MG; Start 09/20/18 at 11:00; Stop 09/23/18 at 10:59 VTE Pro[place]axis [place] [facility] [place]: 2 [place]CD [place] [facility] [place] SCD contraindication: low risk/ambulating Lines/Catheters IV Catheter Type: Saline Lock Richardson in Place: No Assessment/Plan Assessment/Plan 43-year-old female with seizure disorder versus pseudoseizure Chronic depression Schizoaffective disorder Suicidal ideation Patient is medically cleared for transition to psych facility Continue Depakote Physical therapy Discharge planning PHAM FOSTER MD September 22, 2018 09:59
[2018-09-22] MEDS: VALPROATE INJ 500 MG in SOD CHLORIDE 0.9% 50 ML IVPB SCH ×2 (10:03→20:17)
[2018-09-22] MEDS: LORAZEPAM 2 MG INJ IV PRN ×2 (11:36→20:21)
[2018-09-22 14:34] VITALS: BP 128/62; PULSE 109
[2018-09-22 19:31] VITALS: BP 100/46; PULSE 96; RESP 18
[2018-09-23 01:39] VITALS: BP 120/67; PULSE 75; RESP 18
[2018-09-23] MEDS: BENZTROPINE 1 MG TAB PO SCH (07:30)
[2018-09-23 08:54] VITALS: BP 135/58; PULSE 107; RESP 18
[2018-09-23] MEDS: HALOPERIDOL 5 MG INJ IM SCH (09:00)
[2018-09-23] MEDS: HEPARIN 5,000 UNIT/1 ML VIAL SC SCH ×2 (09:01→20:53)
[2018-09-23] MEDS: VALPROATE INJ 500 MG in SOD CHLORIDE 0.9% 50 ML IVPB SCH ×2 (09:02→20:45)
[2018-09-23] MEDS: LORAZEPAM 2 MG INJ IV PRN ×2 (12:34→20:39)
[2018-09-23 20:16] VITALS: BP 138/58; PULSE 89; RESP 16
[2018-09-23 22:00] VITALS: BP 101/56; PULSE 88; RESP 16
[2018-09-24] MEDS ORDERED: ZOLPIDEM 5 MG TAB PO ONE ×2 (01:00→21:39)
[2018-09-24 02:00] VITALS: BP 101/56; PULSE 88; RESP 16
[2018-09-24 09:00] VITALS: BP 125/63; PULSE 98; RESP 18
[2018-09-24] MEDS: HALOPERIDOL 5 MG INJ IM SCH (09:02)
[2018-09-24] MEDS: BENZTROPINE 1 MG TAB PO SCH (09:02)
[2018-09-24] MEDS: HEPARIN 5,000 UNIT/1 ML VIAL SC SCH ×2 (09:03→20:31)
[2018-09-24] MEDS: VALPROATE INJ 500 MG in SOD CHLORIDE 0.9% 50 ML IVPB SCH ×2 (09:04→20:32)
[2018-09-24] MEDS: ONDANSETRON 4 MG INJ IV PRN (09:13)
--- NOTE | 2018-09-24 10:49 | PN ---
Date/Time of Note Date/Time of Note DATE: 09/24/18 TIME: 10:47 Subjective Alert and comfortable. Refusing p.o. meds at times Objective Vitals Vital Signs Date Temp Pulse Resp B/P (MAP) Pulse Ox O2 O2 Flow FiO2 Time Delivery Rate 09/24/18 97.8 98 18 125/63 98 Room Air 09:00 (83) Intake and Output 09/23/18 09/23/18 09/24/18 1414:59 22:59 06:59 IntakeIntake Total 635 ml 820 ml 535 ml BalanceBalance 635 ml 820 ml 535 ml Clear to auscultation bilaterally Regular rate and rhythm Soft nontender nondistended No edema Nonfocal Medications Medications Current Medications IV Flush (NS 3 ml) 3 ml PER PROTOCOL IV ; Start 09/15/18 at 22:00 Ondansetron HCl (Zofran Inj) 4 mg Q6H PRN IV NAUSEA/VOMITING Last administered on 09/24/18at 09:13; Admin Dose 4 MG; Start 09/15/18 at 22:00 Acetaminophen (Tylenol Tab) 650 mg Q6H PRN PO .PAIN 1-3 OR TEMP; Start 09/15/18 at 22:00 Docusate Sodium (Colace) 100 mg Q12H PRN PO .CONSTIPATION; Start 09/15/18 at 22:00 Bisacodyl (Dulcolax) 5 mg DAILY PRN PO .CONSTIPATION; Start 09/15/18 at 22:00 Heparin Sodium (Porcine) (Heparin (5000 Units/1ml)) 5,000 unit BID SC Last administered on 09/24/18at 09:03; Admin Dose 5,000 UNIT; Start 09/16/18 at 21:00 Valproate Sodium 500 mg/Sodium Chloride 55 ml @ 55 mls/hr BID IVPB Last administered on 09/24/18at 09:04; Admin Dose 55 MLS/HR; Start 09/16/18 at 23:00 Benztropine Mesylate (Cogentin) 1 mg DAILY PO Last administered on 09/24/18at 09:02; Admin Dose 1 MG; Start 09/16/18 at 17:00 Lorazepam (Ativan) 0.5 mg Q8H PRN IV ANXIETY Last administered on 09/23/18at 20:39; Admin Dose 0.5 MG; Start 09/19/18 at 16:00 Haloperidol (Haldol) 5 mg DAILY IM Last administered on 09/24/18at 09:02; Admin Dose 5 MG; Start 09/19/18 at 21:00 VTE Prophylaxis Risk score (from [facility] [place]0 risk: 1 SCD applied (from [facility] [place]): No SCD contraindication: low risk/ambulating Lines/Catheters IV Catheter Type: Saline Lock Richardson in Place: No Assessment/Plan Assessment/Plan seizure versus pseudoseizure Chronic depression Schizoaffective disorder Suicidal ideation Patient is medically cleared for discharge to psych facility Continue current therapy PHAM FOSTER MD September 24, 2018 10:49
[2018-09-24 13:09] VITALS: BP 126/60; PULSE 88; RESP 18
[2018-09-24 20:13] VITALS: BP 106/55; PULSE 90; RESP 19
[2018-09-24] MEDS: traMADol 50 MG TAB PO PRN (21:31)
[2018-09-25 02:11] VITALS: BP 118/61; PULSE 93; RESP 18
[2018-09-25] MEDS: LORAZEPAM 2 MG INJ IV PRN ×2 (03:07→13:42)
[2018-09-25 08:00] VITALS: BP 100/60; PULSE 92; RESP 18
[2018-09-25] MEDS: HEPARIN 5,000 UNIT/1 ML VIAL SC SCH (08:38)
[2018-09-25] MEDS: BENZTROPINE 1 MG TAB PO SCH (08:38)
[2018-09-25] MEDS: VALPROATE INJ 500 MG in SOD CHLORIDE 0.9% 50 ML IVPB SCH (08:38)
[2018-09-25] MEDS: HALOPERIDOL 5 MG INJ IM SCH (08:38)
--- NOTE | 2018-09-25 10:15 | PN ---
Date/Time of Note Date/Time of Note DATE: 09/25/18 TIME: 10:14 Subjective Doing well. No new complaints. Objective Vitals Vital Signs Date Temp Pulse Resp B/P (MAP) Pulse Ox O2 O2 Flow FiO2 Time Delivery Rate 09/25/18 98.0 92 18 100/60 96 Room Air 08:00 (73) Intake and Output 09/24/18 09/24/18 09/25/18 1515:00 23:00 07:00 IntakeIntake Total 1135 ml 955 ml OutputOutput Total 2 ml BalanceBalance 1133 ml 955 ml Clear to auscultation bilaterally Regular rate and rhythm Soft nontender nondistended normoactive bowel sounds No edema Nonfocal Medications Medications Current Medications IV Flush (NS 3 ml) 3 ml PER PROTOCOL IV ; Start 09/15/18 at 22:00 Ondansetron HCl (Zofran Inj) 4 mg Q6H PRN IV NAUSEA/VOMITING Last administered on 09/24/18at 09:13; Admin Dose 4 MG; Start 09/15/18 at 22:00 Acetaminophen (Tylenol Tab) 650 mg Q6H PRN PO .PAIN 1-3 OR TEMP; Start 09/15/18 at 22:00 Docusate Sodium (Colace) 100 mg Q12H PRN PO .CONSTIPATION; Start 09/15/18 at 22:00 Bisacodyl (Dulcolax) 5 mg DAILY PRN PO .CONSTIPATION; Start 09/15/18 at 22:00 Heparin Sodium (Porcine) (Heparin (5000 Units/1ml)) 5,000 unit BID SC Last administered on 09/25/18at 08:38; Admin Dose 5,000 UNIT; Start 09/16/18 at 21:00 Valproate Sodium 500 mg/Sodium Chloride 55 ml @ 55 mls/hr BID IVPB Last administered on 09/25/18 08:38; Admin Dose 55 MLS/HR; Start 09/16/18 at 23:00 Benztropine Mesylate (Cogentin) 1 mg DAILY PO Last administered on 09/25/18 08:38; Admin Dose 1 MG; Start 09/16/18 at 17:00 Lorazepam (Ativan) 0.5 mg Q8H PRN IV ANXIETY Last administered on 09/25/18at 03:07; Admin Dose 0.5 MG; Start 09/19/18 at 16:00 Haloperidol (Haldol) 5 mg DAILY IM Last administered on 09/25/18at 08:38; Admin Dose 5 MG; Start 09/19/18 at 21:00 Tramadol HCl (Ultram) 50 mg Q6H PRN PO MODERATE PAIN LEVEL 4-6 Last administered on 09/24/18at 21:31; Admin Dose 50 MG; Start 09/24/18 at 21:30 VTE Prophylaxis Risk score (from [facility] [place]0 risk: 1 SCD applied (from [facility] [place] No SCD contraindication: low risk/ambulating Lines/Catheters IV Catheter Type: Saline Lock Richardson in Place: No Assessment/Plan Assessment/Plan Seizure versus pseudoseizure activity. There has not been any evidence of seizure activity in the last few days Chronic depression Schizoaffective disorder Patient is medically cleared for discharge to psych facility PHAM FOSTER MD September 25, 2018 10:15
[2018-09-25] MEDS: traMADol 50 MG TAB PO PRN (10:30)
[2018-09-25 14:14] VITALS: BP 106/56; PULSE 93; RESP 20
== END 2018-09-25 16:15 | DRG 101 ==
LOC: E/R 13:39 → 6WM 16:28 → SUATTDRO 17:09 → CANRESERV 21:19 → 6WM 22:28 → OBSVTOIN 09-16 18:43 → EDBD 09-16 18:43 → 5EC 09-19 17:40
PROVIDERS: ADMIT Internal Medicine; ATTEND Internal Medicine
DX: R56.9 Unspecified convulsions (principal); R45.851 Suicidal ideations; N39.0 Urinary tract infection, site not specified; F32.9 Major depressive disorder, single episode, unspecified; F25.8 Other schizoaffective disorders; Z76.5 Malingerer [conscious simulation]
CPT/HCPCS: 36415; 70450; 70553; 71045; 80048; 80053; 80061; 80164; 80307; 81001; 82550; 82962; 83036; 83605; 83735; 84146; 84443; 84703; 85025; 96374; 97110; 97116; 97162; 97530; 99217; G0378; J0696; J1630; J1644; J1885; J1953; J2060; J2405